=== PATIENT | female | born 1955 | race Caucasian/White ===

== ENCOUNTER 2019-12-28 08:38 | Emergency (ER) | payer MEDICARE, SELFPAY ==
[2019-12-28 08:52] VITALS: BP 123/57; PULSE 56; RESP 16; TEMP 37.1; O2SAT 97
--- NOTE | 2019-12-28 09:16 | ED.GENADULT ---
HPI - General Adult General Chief complaint: Upper Respiratory Infection Stated complaint: Congestion History of Present Illness HPI narrative: Patient is a 64-year-old female who presents to the urgent care via POV for evaluation of sinusitis that began approximately 2 weeks ago. Additionally, she reports rhinorrhea, sinus pain, sinus pressure, and intermittent frontal headaches. She has a long history of sinus problems . She has been medicating with Sudafed PE and azestaline. These medications have provided minimal relief. Sinus pressure worsens with bending forward. Denies fever, chills, sweats, malaise, change in appetite, poor p.o. intake, recent weight loss, severe persistent headache, LOC, dizziness, lymphadenopathy, vision changes, ear pain/drainage, nasal congestion, difficulty swallowing, hoarseness, sore throat, abdominal pain, nausea, vomiting, diarrhea, cough, shortness of breath, chest pain, heart palpitations/murmurs. Related Data Home Medications Medication Instructions Recorded Confirmed Ivig- Gamex C MONTHLY 12/28/19 aspirin [Aspirin Low Dose] 81 mg PO DAILY 12/28/19 12/28/19 atorvastatin [Lipitor] 40 mg PO DAILY 12/28/19 12/28/19 cholecalciferol (vitamin D3) 50 mcg PO DAILY 12/28/19 12/28/19 [Vitamin D3] citalopram [Celexa] 20 mg PO DAILY 12/28/19 12/28/19 famotidine [Pepcid] 20 mg PO BID 12/28/19 12/28/19 loratadine 10 mg PO DAILY 12/28/19 12/28/19 mesalamine [Lialda] 2.4 g PO DAILY 12/28/19 12/28/19 montelukast [Singulair] 10 mg PO DAILY 12/28/19 12/28/19 [id number]-vit K 1 tablet PO DAILY 12/28/19 12/28/19 [Adults Multivitamin] risedronate 150 mg PO WEEKLY 12/28/19 12/28/19 Allergies Allergy/AdvReac Type Severity Reaction Status Date / Time clavulanic acid Allergy Intermediate RASH Verified 08/11/18 09:00 amoxicillin Allergy Unknown Unknown Verified 12/28/19 09:08 erythromycin base Allergy Unknown Unknown Verified 12/28/19 09:08 fluticasone Allergy Unknown UNK Verified 08/11/18 09:00 lactose Allergy Unknown UNK Verified 08/11/18 09:00 mannitol Allergy Unknown Unknown Verified 12/28/19 09:08 mold Allergy Unknown RESP. Verified 08/11/18 09:00 DIFFICULTY pegfilgrastim Allergy Unknown UKN Verified 08/11/18 09:00 salmeterol Allergy Unknown UNK Verified 08/11/18 09:00 soy Allergy Unknown UNK Verified 08/11/18 09:00 sulfamethizole Allergy Unknown Unknown Verified 12/28/19 09:08 sulfamethoxazole Allergy Unknown UNKNOWN Verified 08/11/18 09:00 trimethoprim Allergy Unknown Unknown Verified 12/28/19 09:08 water for injection,sterile Allergy Unknown UNK Verified 08/11/18 09:00 zileuton Allergy Unknown UNKNOWN Verified 08/11/18 09:00 zoledronic acid Allergy Unknown UNK Verified 08/11/18 09:00 Review of Systems Review of Systems: Narrative: All other systems reviewed and are negative PMFSH Family History Family History Father Hypertension Cerebrovascular accident, Onset Age: 73 Patient's father is Sibling Hypertension Patient's sister is in good health Mother Family history of malignant neoplasm of breast in first degree relative, Onset Age: 60 Patient's mother is Social History Social History Smoking status: Never smoker Alcohol intake: current Gender identity (if verbalized by the patient): Female Comments I have reviewed and agree with the patient's past medical, surgical, social, and family hx as documented by the RN. There is no relevant family history pertinent to the presenting complaint. Exam Narrative: Exam Narrative: She reported not necessarily with funny gENERAL: Well-appearing, well-nourished, and in no acute distress. HEAD: Normocephalic, atraumatic. Moderate sinus tenderness appreciated to maxillary and frontal sinuses upon palpation. No facial swelling present. EYES: PERRLA and EOMI. No
== END 2019-12-28 09:35 | disposition home or self-care (01) ==
PROVIDERS: Emergency Provider Nurse Practitioner Family
DX: J01.90 Acute sinusitis, unspecified (principal)
CPT/HCPCS: 99213; G0463